=== PATIENT | female | born 1965 | race Caucasian/White ===

== ENCOUNTER 2016-10-14 09:30 | Day surgery (SDC) | payer OTHER ==
[~2016-10-14] VITALS: Ht 157.5 cm; Wt 101.6 kg
[~2016-10-14 09:30] MED LIST: 0.9% Sodium Chloride 1,000 ML IV PRN; Sodium Chloride LOK Flush 10 mL Syringe IV PRN; fentaNYL-PF 50 mCg/mL 2 mL Inj IVPUSH PRN
[2016-10-14 09:56] VITALS: BP 123/72; PULSE 72; RESP 16; O2SAT 94
[2016-10-14] MEDS ORDERED: fentaNYL-PF 50 mCg/mL 2 mL Inj ONE (09:56)
[2016-10-14] MEDS ORDERED: MULT1CAP33 PO (10:03)
[2016-10-14] MEDS ORDERED: HYDR25TA4 PO (10:03)
[2016-10-14] MEDS ORDERED: VERA80TA2 PO (10:03)
[2016-10-14] MEDS ORDERED: NAPR220C11 PO (10:03)
[2016-10-14] MEDS ORDERED: 0.9% Sodium Chloride 1,000 ML IV ONE (10:18)
[2016-10-14 11:08] VITALS: BP 114/69; PULSE 65; RESP 14; O2SAT 97
[2016-10-14 11:18] VITALS: BP 110/57; PULSE 59; RESP 12; O2SAT 98
--- NOTE | 2016-10-14 11:20 | ENDO ---
[address] [address] ENDOSCOPY PROCEDURE PATIENT: MARY KWAN : 1965 MR#: [id number] ADMIT: 10/14/2016 JOB ID: [id number] DATE: 10/14/2016 PROCEDURE: Colonoscopy. INDICATION: Altered bowel habits. The patient's ASA classification is 2. Mallampati score is 2. MEDICATIONS: 1. Versed 2.5 mg. 2. Fentanyl 75 mcg. INSTRUMENT USED: PCF H 180 AL. PREPARATION QUALITY: Was good. PROCEDURE DETAILS: After informed consent was obtained, the patient was brought into the GI suite, where she was placed on oxygen via nasal cannula and monitored with continuous pulse oximeter, telemetry and blood pressure monitoring. A time-out was performed. Then, she was placed in the left lateral decubitus position and medications were administered for sedation. Digital rectal examination was performed, which was unremarkable. Rectal tone was normal. The colonoscope was then inserted into the rectum and advanced under direct visualization to the cecum, which was identified by the presence of the ileocecal valve and appendiceal orifice. Once the cecum was reached, colonoscope was withdrawn back to the rectum. The mucosa and lumen were examined. In the rectum, retroflexion was performed. Following retroflexion, remaining air in the rectum was suctioned and the procedure was completed. FINDINGS: Normal examination from rectum to cecum. IMPRESSION: Normal colonoscopy. RECOMMENDATIONS: Followup in GI clinic. COMPLICATIONS: None. ESTIMATED BLOOD LOSS: 0.
== END 2016-10-14 23:59 | disposition home or self-care (01) ==
LOC: END 09:30
PROVIDERS: ATTEND Internal Medicine Gastroenterology
DX: R19.4 Change in bowel habit (principal); E66.01 Morbid (severe) obesity due to excess calories; Z98.84 Bariatric surgery status; Z90.710 Acquired absence of both cervix and uterus; Z83.71 Family history of colonic polyps; Z68.41 Body mass index [BMI] 40.0-44.9, adult
CPT/HCPCS: 45378; G0500; J2250; J3010; J7030